=== PATIENT | female | born 1950 | race Hispanic/Latino ===

== ENCOUNTER 2020-12-02 15:48 | Emergency (ER) | payer MEDICARE ==
[~2020-12-02] VITALS: Ht 152.4 cm; Wt 54.4 kg
[2020-12-02 17:03] VITALS: BP 168/85
== END 2020-12-02 17:04 | disposition home or self-care (01) ==
LOC: ER 15:53
DX: R60.9 Edema, unspecified (principal); I10 Essential (primary) hypertension; E03.9 Hypothyroidism, unspecified
CPT/HCPCS: 71045; 99284